=== PATIENT | female | born 1965 | race Caucasian/White ===

== ENCOUNTER → 2016-09-28 | Outpatient (CLI) | payer OTHER | END | disposition home or self-care (01) | LOC: C.LABSPEC 17:12 | PROVIDERS: ATTEND Nurse Practitioner Family | DX: R39.9 Unspecified symptoms and signs involving the genitourinary system (principal); N81.10 Cystocele, unspecified; R31.29 Other microscopic hematuria; R82.8 Abnormal findings on cytological and histological examination of urine ==